=== PATIENT | female | born 1940 | race Caucasian/White ===

== ENCOUNTER 2016-11-20 14:09 | Emergency (ER) | payer MEDICARE, BC ==
[2016-11-20 15:17] VITALS: BP 160/68
--- NOTE | 2016-11-20 16:02 | UC ---
Skin Complaint HPI - HPI Summary HPI Summary: SEBACEOUS CYST ON RIGHT UPPER BACK. PRIMARY CARE PROVIDER LANCED IT FOR A BIOPSY , BUT CYST HAS BEEN TENDER AND DRAINING EVER SINCE. NO FEVER. NO ABNORMAL BIOPSY RESULTS - History of Current Complaint Chief Complaint: UCSkin Time Seen by Provider: 11/20/16 15:23 Stated Complaint: SOFT TISSUE COMPLAINT Hx Obtained From: Patient Onset/Duration: Gradual Onset, Lasting Weeks, Worse Since - 3 WEEKS Skin Exposure Onset/Duration: Weeks Ago Onset Severity: Mild Current Severity: Mild Location: Discrete - RIGHT BACK Character: Raised, Painful - TENDER Aggravating: Touch Alleviating: Nothing Associated Signs & Symptoms: Positive: Drainage, Red Streaks. Negative: Nausea , Vomiting, Numbness, Fever, Chills, Cough Related History: Trauma - BIOPSY RIGHT UPPER BACK - Allergy/Home Medications Allergies/Adverse Reactions: Allergies Allergy/AdvReac Type Severity Reaction Status Date / Time Sulfa Drugs Allergy Unknown Unknown Verified 11/20/16 15:17 Reaction Details Iodixanol [From Visipaque] Allergy Hives Verified 11/20/16 15:17 Review of Systems Constitutional: Negative Skin: Other - SEBACEOUS CYST RIGHT UPPER BACK Eyes: Negative ENT: Negative Respiratory: Negative Cardiovascular: Negative Gastrointestinal: Negative Genitourinary: Negative Motor: Negative Neurovascular: Negative Musculoskeletal: Negative Neurological: Negative Psychological: Negative All Other Systems Reviewed And Are Negative: Yes PMH/Surg Hx/FS Hx/Imm Hx Previously Healthy: Yes Endocrine History Of: Reports: Diabetes - type 2 Cardiovascular History Of: Reports: Hypertension Denies: Pacemaker/ICD GI/ History Of: Denies: Renal Disease Cancer History Of: Denies: Breast Cancer - Surgical History Surgical History: Yes Surgery Procedure, Year, and Place: hemrhoidectomy. TUBAL LIGATION. CATARACT - [place] - Family History Known Family History: Negative: Blood Disorder - Social History Occupation: Retired Lives: With Family Alcohol Use: None Substance Use Type: Prescribed Smoking Status (MU): Heavy Every Day Tobacco Smoker Type: Cigarettes Amount Used/How Often: 1 ppd Length of Time of Smoking/Using Tobacco: since age 22 Cessation Counseling: Patient Advised to Stop Physical Exam Triage Information Reviewed: Yes Appearance: Well-Appearing, No Pain Distress, Well-Nourished Vital Signs: Initial Vital Signs Temp 99 F 11/20/16 15:12 Pulse 71 11/20/16 15:12 Resp 16 11/20/16 15:12 BP 160/68 11/20/16 15:12 Pulse Ox 100 11/20/16 15:12 Vital Signs Reviewed: Yes Eye Exam: Normal ENT Exam: Normal ENT: Positive: Normal ENT inspection, Hearing grossly normal, TMs normal Dental Exam: Normal Neck exam: Normal Respiratory Exam: Normal Respiratory: Positive: Chest non-tender, Lungs clear, Normal breath sounds, No respiratory distress, No accessory muscle use Cardiovascular Exam: Normal Cardiovascular: Positive: RRR, No Murmur, Pulses Normal Abdominal Exam: Normal Abdomen Description: Positive: Nontender, No Organomegaly Musculoskeletal Exam: Normal Neurological Exam: Normal Psychological Exam: Normal Skin: Positive: Other - RIGHT UPPER BACK SEBACEOUS CYST Course/Dx - Differential Diagnoses - Skin Complaint Differential Diagnoses: Abscess - Diagnoses Provider Diagnoses: SEBACOUS CYST RIGHT UPPER BACK Discharge - Discharge Plan Condition: Stable Disposition: HOME Prescriptions: Cephalexin CAP* [Keflex CAP*] 500 mg PO TID #30 cap Patient Education Materials: Epidermal Inclusion Cysts (ED) Referrals: Codey Bhatia MD [Medical Doctor] - Oleksandr Khanna MD [Primary Care Provider] -
== END 2016-11-20 15:57 | disposition home or self-care (01) ==
LOC: UCEAST 14:09
DX: L72.3 Sebaceous cyst (principal); I10 Essential (primary) hypertension; E11.9 Type 2 diabetes mellitus without complications; F17.210 Nicotine dependence, cigarettes, uncomplicated; Z88.2 Allergy status to sulfonamides
CPT/HCPCS: 87070; 87205; 87640; 87641; 99212; G0463